=== PATIENT | male | born 1940 | race Caucasian/White ===

== ENCOUNTER 2023-03-03 20:37 | Outpatient (CLI) | payer MEDICARE, SELFPAY | END 2023-03-03 20:38 | disposition home or self-care (01) | PROVIDERS: Visit Provider Nurse Practitioner | DX: G47.33 Obstructive sleep apnea (adult) (pediatric) (principal) | CPT/HCPCS: 95811 ==

== ENCOUNTER 2023-05-24 06:28 | Day surgery (SDC) | payer MEDICARE, SELFPAY ==
[2023-05-24] VITALS (10 sets, daily range): BP systolic 102–126; BP diastolic 55–80; PULSE 60–65; RESP 16–18; TEMP 36.2–36.6; O2SAT 92–94; BMI 32.0
--- OUTSIDE RECORDS SUMMARY | 2023-05-24 06:33 | XMS_ITS | Clinical Summary ---
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 Electrochemiluminescence Immunoassay (ECLIA) The reference interval(s) and other method performance specifications have not been established for this body fluid. The test result must be integrated into the clinical context for interpretation. Values obtained with different assay methods or kits cannot be used interchangeably. ??Results cannot be interpreted as absolute evidence of the presence or absence of malignant disease. Cyst Fluid (Pancreas Head) Non-Blood / Unknown 05/16/2023 10:18 AM SHEET WRITER 05/16/2023 11:45 AM SHEET WRITER Narrative [facility] ([facility]) - 05/18/2023 3:10 PM SHEET WRITER Test(s) 764146-[id number], Fluid was developed and its performance characteristics determined by [facility]. It has not been cleared or approved by the Food and Drug Administration. Performed at: ??01 - [address] ??[id number] Automated Manufacturing Instructor: Wai Munoz MD, Phone: ??[phone] Jack Crenshaw MD BODY FLUID [facility] ([facility]) [address] [place] [address], * AMYLASE OTHER BODY FLUID (05/16/2023 10:18 AM SHEET WRITER) Amylase Body Fld 20 U/L 05/17/19 12:08 PM SHEET WRITER [facility] ([facility] Comment: ?: BODY FLUID TYPE : ?AMYLASE ?: ?: : : ?: Lymph ? : ?50 - 83 ?: ?: : : ?: Peritoneal ?: ? : ?: Fluid ? : ?88 - 109 ? : ?: : : ?: Saliva ?: ? : ?: (Mixed Glands) ??: ? [id number] - [id number] ?: ?: : : ? Julianna W, Hanny V. Reference Intervals ? for Adults and Children 2008. Ninth ? Edition (V9.1) [employer], ? [place]; [place]: October 2008. Cyst Fluid (Pancreas Head) Non-Blood / Unknown 05/16/2023 10:18 AM SHEET WRITER 05/16/2023 11:45 AM SHEET WRITER Narrative [facility] ([facility]) - 05/17/2023 12:08 PM SHEET WRITER Performed at: ??01 - [address] ??[id number] Automated Manufacturing Instructor: Cristian Mosley MD, Phone: ??[phone] Jack Crenshaw MD BODY FLUID [facility] ([facility]) [address] [place] [address], * PATH FNA CYTOLOGY ASP CYTOLOGY (05/16/2023 10:18 AM SHEET WRITER) Case Report Medical Cytology Report ? Case: [id number] ? Authorizing Provider: ??Jack Crenshaw, ?? Collected: ? 05/16/2023 1018 ? MD ? Ordering Location: ? [facility] ?Received: ?05/16/2023 1103 ? Hospital ? Pathologist: ? Josselyn Argueta, ? Specimens: ?? A) - Pancreas Head, R/o serous cyst adenoma ? B) - Pancreas Head, pancreas head cyst vs mass ? 4 5:06 PM [facility] Amendment 05/17/2023: Report modified to include results of Ki-67 proliferation index; see final diagnosis and updated comment. 4 5:06 PM [facility] Final Diagnosis A) PANCREAS, HEAD, EUS-GUIDED FINE NEEDLE ASPIRATION OF CYST FLUID: 1. Scattered bland epithelial cells with neuroendocrine morphology in a background of blood 2. Consistent with sampling of a cystic well differentiated neuroendocrine tumor (see part B below) B) PANCREAS, HEAD, CYSTIC MASS, EUS GUIDED FINE NEEDLE ASPIRATION: 1. Positive for neoplasm; well-differentiated neuroendocrine tumor 2. Ki-67 proliferation index of 4%, corresponding to a WHO grade 2 (of 3) well differentiated ?? neuroendocrine tumor 3. See comment 4 5:06 PM [facility] Amendment electronically signed by Josselyn Argueta DO on 05/17/2023 at 5:06 PM Comment B) The slides show a neuroendocrine neoplasm with well-differentiated cytologic features. ??There is no significant mitotic activity or necrosis. A Ki-67 proliferation reveals a proliferation index of 4%, consistent with a WHO grade 2 well-differentiated neuroendocrine tumor. Dr. Argueta notified Dr. Crenshaw on 05/17/2023. Part B of this case was seen in consultation with Dr. Salguero. Ki-67 (proliferation) index is assessed by immunohistochemistry using clone [id number] with quantitative microscopy (image analysis). A recut H&E and the IHC slides (block B2) are reviewed by Dr. Argueta. The results are as follows: Ki-67 index = 4% (4853 cells analyzed for Ki-67.) 4 5:06 PM [facility] Clinical Information Mr. Castelan is a 82 y.o. with a suspected mass in the pancreas seen on CT scan. Endoscopic ultrasound revealed a mass within the pancreatic head which was mixed solid and cystic measuring 60 x 40 mm in diameter with well-defined borders. Fine-needle aspiration was performed using a transgastric approach. 4 5:06 PM [facility] Gross Description A) SOURCE: Pancreas Head Cyst, fine needle aspiration The specimen consists of 2 cc of light red opaque fluid from which the following is prepared: ? -1 DiffQuik stained slide ? -1 Papanicolaou stained ThinPrep slide ?? B) Received identified as Pancreas Head, is a fine needle aspirate specimen. The specimen consists of: ? -2 Air dried slides ? -1 CytoLyt vial ? -0 RPMI vials ? -1 Formalin vial The following were prepared from the specimen submitted: ? -2 Diff-Quik stained slides ? -1 Papanicolaou stained ThinPrep slide ? -1 H&E stained cell block slide B2 Cell block material was removed from the patient and placed directly in formalin at 1055 on 05/16/23 and fixed in formalin at least 6 hours and no more than 72 hours. 4 5:06 PM SHEET WRITER [facility] Adequacy Assessment B) A.S. assessed adequacy from the air-dried smears at the time of the procedure with an impression of Not Adequate. 4 5:06 PM [facility] Microscopic Description Specimen adequacy: Adequate for interpretation. All slides were reviewed. The microscopic appearance substantiates the diagnosis. Immunohistochemical stains were performed on block B2, and the cells of the tumor cells are summarized below: Cytokeratin cocktail: Positive (diffuse) INSM1: Positive (diffuse) Synaptophysin: Positive (diffuse) Inhibin: Negative Ki-67 immunohistochemistry with image analysis was performed on block B2. Support for the interpretation of this case may have included the use of immunohistochemistry and/or in situ hybridization tests that were performed by [facility] and whose performance characteristics were evaluated by pathologists from [facility]. These tests have not been cleared or approved by the U.S. Food and Drug Administration. The FDA has determined that such clearance or approval is not necessary. These tests are used for clinical purposes and should not be regarded as investigational or for research. This laboratory is certified under the Clinical Laboratory Improvement Amendments of 1988 (CLIA) as qualified to perform high complexity clinical laboratory testing. 4 5:06 PM [facility] Additional Information Cytology is screened at [facility] - [address], [place] [address] and [facility] - [address] [place] [address] and [facility] - [address] [place] [address] Interpreted at [facility] - [address], [place] [address] 4 5:06 PM SHEET WRITER [facility] Cyst Fluid (Pancreas Head) 05/16/2023 10:18 AM SHEET WRITER 05/16/2023 11:03 AM SHEET WRITER Specimen obtained by aspiration (specimen) (Pancreas Head) 05/16/2023 10:44 AM SHEET WRITER 05/16/2023 11:03 AM SHEET WRITER Jack Crenshaw MD PATHOLOGY/CYTO LOGY [facility] [address] [place] [address], * ENDOSCOPY (05/16/2023 10:08 AM SHEET WRITER) 05/16/2023 10:0 8 AM SHEET WRITER Narrative Transcriptions Jack Crenshaw MD - 05/16/2023 11:25 AM CST [facility] Patient Name: Desi Castelan Procedure Date: 05/16/2023 Gender: Male Date of : 1940 Admit Type: Ambulatory Procedure: Upper EUS Proceduralist: Jack Crenshaw MD - [facility] Referring MD: Jack Crenshaw MD Indications/Pre-Op Diagnosis: Suspected mass in pancreas on CT scan Medications: Monitored Anesthesia Care Procedure Description: Risk of bleeding, infection, perforation, pancreatitis, need for surgery, remote chance of and alternatives were discussed, andthe patient gave informed consent. The endoscope [id number] was introduced through the mouth, and advanced to the third part of duodenum. The upper EUS wasaccomplished without difficulty. The patient tolerated the procedure well. Complications: No immediate complications. Estimated Blood Loss & Specimen: Estimated blood loss: none. Specimen collected: Yes and sent to Laboratory Findings: ENDOSCOPIC FINDING: : The examined esophagus was normal. The entire examined stomach was normal. The examined duodenum was normal. ENDOSONOGRAPHIC FINDING: : There was no sign of significant endosonographic abnormality in the ampulla. No masses were identified. There was no sign of significant endosonographic abnormality in the common bile duct. The maximum diameter of the duct was 4 mm. Nostones, no biliary sludge, ducts of normal caliber and ducts with regular contour were identified. There was no sign of significant endosonographic abnormality in theleft lobe of the liver and in the right lobe of the liver. No focalpathology was identified. A mass was identified in the pancreatic head. The mass was mixedsolid and cystic. The mass measured 60 mm by 40 mm in maximalcross-sectional diameter. The endosonographic borders were well-defined. An intact interface was seen between the mass and the adjacent structures suggesting a lack of invasion. Fine needle biopsy was performed.Color Doppler imaging was utilized prior to needle puncture to confirm alack of significant vascular structures within the needle path. Two passes were made with the 22 gauge ultrasound biopsy needle using a transgastric approach. Final cytology results are pending. Diagnostic needle aspiration for fluid was performed. Color Doppler imaging was utilized prior to needle puncture to confirm a lack of significant vascular structures within the needle path. One pass was made withthe 22 gauge needle using a transgastric approach. The amount of fluid collected was 4 mL. The fluid was serosanguinous. Sample(s) were sent for amylase concentration, cytology and CEA. Pancreatic parenchymal abnormalities were noted in the pancreaticbody and pancreatic tail. These consisted of atrophy. The pancreatic duct had a normal endosonographic appearance in the pancreatic head, body of the pancreas and tail of the pancreas. The pancreatic duct measured up to 2 mm in diameter in the head and 1 mmin the body and tail. The aortopulmonary region (level 5), subcarinal mediastinum (level 7) and celiac region (level 20) nodes were endosonographically normal.No pathologic lymphadenopathy was identified. Impressions/Post-Op Diagnosis: - A mass was identified in the pancreatic head. Tissue was obtainedfrom this exam, and results are pending. However, the endosonographic appearance is consistent with a serous cystadenoma. Fine needlebiopsy performed. Fine needle aspiration for fluid performed. Recommendation: - Return to endoscopist at appointment to be scheduled. Jack Crenshaw MD 05/16/2023 11:25:20 AM This report has been signed electronically. Note Initiated On: 05/16/2023 10:08 AM Jack Crenshaw MD PROCEDURE ORD * SCAN-CARDIAC STRIP (05/02/2023 9:31 AM SHEET WRITER) Scanner OTHER * (ABNORMAL) GLUCOSE METER (05/02/2023 8:09 AM SHEET WRITER) Only the most recent of19 resultswithin the time period is included. GLUCOSE METER 166(H) 65 - 100 mg/dL 05/02/2023 8:13 AM SHEET WRITER [facility] Blood BLOOD SPECIMEN / Unknown 05/02/2023 8:09 AM SHEET WRITER 05/02/2023 8:13 AM SHEET WRITER Rhonda Jordan NP CHEMISTRY Performing Organization Address City/State/[facility] Co de Phone Number [facility] [address] [place] [address] * SCAN-CARDIAC STRIP (05/01/2023 7:48 AM SHEET WRITER) Scanner OTHER * ECHO TTE COMPLETE W CONTRAST (04/30/2023 3:43 PM SHEET WRITER) AORTIC VALVE MEAN PG 2 mmHg LVEDD 5.1 cm EJECTION FRACTION 60 - 65% Anatomical Region Laterality Modality Ultrasound, Othe r 04/30/2023 11:3 6 AM SHEET WRITER Narrative 04/30/2023 4:33 PM SHEET WRITER ECHOCARDIOGRAM DESI CASTELAN ?Accession#: ?? [id number] : ?1940 82 years Study Date: ?? 04/30/2023 11:36:34 AM Gender: M ? BP: ? 157/74 mmHg Height: 178.00 cm ? BSA: ?2.15 m? ? ? Weight: 97.00 kg ?Tech: ? MBW ?Referring MD: ORIN SOSA Site: ? [facility] ([place]) Reading Location: [facility] Patient Location: Inpatient. Procedure: 2D w/ Contrast, Color Doppler and Spectral Doppler. Indication for study: Weakness (part of neuro workup) (Covid positive) Cardiac Rhythm: Regular.Study quality: Technically limited. Imaging limitations: This study was subject to imaging limitations due to a prominent lung artifact and very difficult images from all cardiac windows. Final Impressions: 1. Technically limited exam. 2. Normal LV size, not well visualized wall thickness, normal global systolic function with an estimated EF of 60 - 65%. 3. Right ventricular cavity size is not well visualized, global systolic RV function is not well visualized. Probably normal RV size and systolic function. 4. Cardiac valves not well seen. 5. The aortic sinus is dilated with a maximal diameter of 4.4 cm. 6. Echo contrast was administered to enhance visualization of all left ventricular segments. Chamber Sizes and Function Normal left ventricular size, not well visualized wall thickness, normal global systolic function with an estimated EF of 60 - 65%. Left atrial size is not well visualized. Right ventricular cavity size is not well visualized, global systolic RV function is not well visualized. The right atrium is not well visualized. The pulmonary artery is not well visualized. The sinus of Valsalva is dilated. The ascending aorta is not well visualized. Valves, RV Pressures and Diastolic Function The aortic valve is not well visualized , no stenosis and no regurgitation. The mitral valve is not well visualized, no mitral regurgitation. Spectral Doppler shows Grade 1 pattern of LV diastolic filling. The tricuspid valve is not well visualized. Tricuspid regurgitation is regurgitation is not evident. The pulmonic valve is not well visualized. Unable to determine pulmonary regurgitation. Masses, Effusion, Shunts There is no pericardial effusion. The inferior vena cava is dilated, respiratory size variation less than 50%. No left to right shunting was detected by limited color flow Doppler interrogation of the interatrial septum. MEASUREMENTS AND CALCULATIONS 2-D Measurements and LV Function: LVID (d) 5.1 cm LV FS% (2D) ?? 33 % LVID (s) 3.4 cm LVOT diameter 2.6 cm LVPW (d) 1.1 cm HR ?62 bpm Ao Sinus 4.4 cm LA Vol index ??30 ml/m2 LA ? 3.8 cm RV Max 4C (d) 3.9 cm Diastology: Mitral ?Tissue Doppler E Peak 0.5 m/s ??e', Septum ? 0.07 m/s A Peak 0.7 m/s ??e', Lateral ?0.08 m/s E/A ?0.8 ?E/e' Average ?? 6.77 DT ? 234 msec Aortic Valve: Vmax ? 1.0 m/s ??MIRANDA (V) ?? 2.94 cm? ? ? VTI ?0.22 m ?? MIRANDA (I) ?? 2.98 cm? ? ? LVOT V max ? 0.6 m/s ??Max PG ?4 mmHg LVOT VTI ? 0.12 m ?? Mean PG ?? 2 mmHg SV ? 64 ml ?Dim Index 0.57 SV index ? 30 ml/m? ? ? CO ?4.0 l/min AV Ejection Time 0.33 sec CI ?1.9 l/min/m? ? ? AV Flow Rate ? 195 ml/s Mitral Valve: MVA ? 3.2 cm? ? ? MV P 1/2 ??68 msec MV Mean G 1 mmHg MV VTI ?0.22 m Tricuspid Valve and estimated PA pressures: TAPSE 2.8 cm Contrast documentation: 4 ml diluted Definity, lot #[id number], [facility]# [id number] was administered peripherally to enhance visualization of all left ventricular segments. . This study was interpreted by an [facility] accredited facility. CC: Joy Hurd. ??Final ?? Procedure Note Desi Sesay MD - 04/30/2023 ECHOCARDIOGRAM DESI CASTELAN : 1940 82 years Study Date: 04/30/2023 11:36:34 AM Gender: M BP: 157/74 mmHg Height: 178.00 cm BSA: 2.15 m? ? ? Weight: 97.00 kg Tech: SADIA Referring MD: ORIN SOSA Site: [facility]) Reading Location: [facility] Patient Location: Inpatient. Procedure: 2D w/ Contrast, Color Doppler and Spectral Doppler. Indication for study: Weakness (part of neuro workup) (Covid positive) Cardiac Rhythm: Regular.Study quality: Technically limited. Imaging limitations: This study was subject to imaging limitations due toa prominent lung artifact and very difficult images from all cardiacwindows. Final Impressions: 1. Technically limited exam. 2. Normal LV size, not well visualized wall thickness, normal globalsystolic function with an estimated EF of 60 - 65%. 3. Right ventricular cavity size is not well visualized, global systolicRV function is not well visualized. Probably normal RV size and systolicfunction. 4. Cardiac valves not well seen. 5. The aortic sinus is dilated with a maximal diameter of 4.4 cm. 6. Echo contrast was administered to enhance visualization of all leftventricular segments. Chamber Sizes and Function Normal left ventricular size, not well visualized wall thickness, normalglobal systolic function with an estimated EF of 60 - 65%. Left atrialsize is not well visualized. Right ventricular cavity size is not wellvisualized, global systolic RV function is not well visualized. The rightatrium is not well visualized. The pulmonary artery is not wellvisualized. The sinus of Valsalva is dilated. The ascending aorta is notwell visualized. Valves, RV Pressures and Diastolic Function The aortic valve is not well visualized , no stenosis and noregurgitation. The mitral valve is not well visualized, no mitralregurgitation. Spectral Doppler shows Grade 1 pattern of LV diastolicfilling. The tricuspid valve is not well visualized. Tricuspidregurgitation is regurgitation is not evident. The pulmonic valve is notwell visualized. Unable to determine pulmonary regurgitation. Masses, Effusion, Shunts There is no pericardial effusion. The inferior vena cava is dilated,respiratory size variation less than 50%. No left to right shunting wasdetected by limited color flow Doppler interrogation of the interatrialseptum. MEASUREMENTS AND CALCULATIONS 2-D Measurements and LV Function: LVID (d) 5.1 cm LV FS% (2D) 33 % LVID (s) 3.4 cm LVOT diameter 2.6 cm LVPW (d) 1.1 cm HR 62 bpm Ao Sinus 4.4 cm LA Vol index 30 ml/m2 LA 3.8 cm RV Max 4C (d) 3.9 cm Diastology: Mitral Tissue Doppler E Peak 0.5 m/s e', Septum 0.07 m/s A Peak 0.7 m/s e', Lateral 0.08 m/s E/A 0.8 E/e' Average 6.77 DT 234 msec Aortic Valve: Vmax 1.0 m/s MIRANDA (V) 2.94 cm? ? ? VTI 0.22 m MIRANDA (I) 2.98 cm? ? ? LVOT V max 0.6 m/s Max PG 4 mmHg LVOT VTI 0.12 m Mean PG 2 mmHg SV 64 ml Dim Index 0.57 SV index 30 ml/m? ? ? CO 4.0 l/min AV Ejection Time 0.33 sec CI 1.9 l/min/m? ? ? AV Flow Rate 195 ml/s Mitral Valve: MVA 3.2 cm? ? ? MV P 1/2 68 msec MV Mean G 1 mmHg MV VTI 0.22 m Tricuspid Valve and estimated PA pressures: TAPSE 2.8 cm Contrast documentation: 4 ml diluted Definity, lot #[id number], [facility]#[id number] was administered peripherally to enhance visualization of allleft ventricular segments. . This study was interpreted by an [facility] accredited facility. CC: Joy Hurd. Final Orin Sosa DO ECHO ORD * US RENAL AND BLADDER COMPLETE (04/30/2023 11:20 AM SHEET WRITER) Anatomical Region Laterality Modality Abdomen, AORTA, KIDNEYS Ultrasou nd 04/30/2023 11:4 8 AM SHEET WRITER Impressions 04/30/2023 11:48 AM SHEET WRITER Right renal cyst. Otherwise negative. No hydronephrosis. Radford catheter present an empty bladder. Dictated by Yves Snow MD @ 04/30/2023 11:48:30 AM (Electronically Signed) Narrative 04/30/2023 11:48 AM SHEET WRITER For Patients: ??As a result of the Cures Act, medical imaging exams and procedure reports are released immediately into your electronic medical record. ??You may view this report before your referring provider. ??If you have questions, please contact your health care provider. INDICATION: BPH without obstruction TECHNIQUE: Ultrasound renal bilateral. Gonzales-scale and color Doppler sonographic images were acquired of the kidneys and urinary bladder. COMPARISON: None FINDINGS: Right kidney: 13.7 x 5.5 x 6.1 cm. Multiple renal cysts the largest measuring 2.8 cm. Otherwise normal echotexture and cortex. No masses, stones, or hydronephrosis. Left kidney: 11.5 x 7.2 x 7.7 cm. Normal echotexture and cortex. No masses, stones, or hydronephrosis. Bladder: Radford catheter present an empty bladder. Procedure Note Uzair Snow MD - 04/30/2023 For Patients: As a result of the Cures Act, medical imagingexams and procedure reports are released immediately into your electronicmedical record. You may view this report before your referring provider.If you have questions, please contact your health care provider. INDICATION: BPH without obstruction TECHNIQUE: Ultrasound renal bilateral. Gonzales-scale and color Doppler sonographicimages were acquired of the kidneys and urinary bladder. COMPARISON: None FINDINGS: Right kidney: 13.7 x 5.5 x 6.1 cm. Multiple renal cysts the largestmeasuring 2.8 cm. Otherwise normal echotexture and cortex. No masses,stones, or hydronephrosis. Left kidney: 11.5 x 7.2 x 7.7 cm. Normal echotexture and cortex. Nomasses, stones, or hydronephrosis. Bladder: Radford catheter present an empty bladder. IMPRESSION: Right renal cyst. Otherwise negative. No hydronephrosis. Radford catheterpresent an empty bladder. Dictated by Yves Snow MD @ 04/30/2023 11:48:30 AM (Electronically Signed) Blaine Palomares MD US * MR HEAD BRAIN WO (04/30/2023 9:29 AM SHEET WRITER) Anatomical Region Laterality Modality BRAIN, HEAD Magnetic Resonan ce 04/30/2023 9:39 AM SHEET WRITER Addenda Addendum by Shauna Garces DO on 04/30/2023 10:12 AM SHEET WRITER Indication: Transient ischemic attack Technique: Multiplanar, multisequence MRI of the brain obtained without contrast. Comparison: CT head 04/27/2023 Findings: Two small foci on the restricted diffusion are present along the left precentral gyrus and left posterior occipital lobe, compatible with subacute infarcts. No evidence of hemorrhagic conversion, midline shift or herniation. Small chronic infarct is noted at the right frontal lobe. Tiny chronic lacunar infarcts are noted at the left mendes radiata, right caudate head, and left cerebellar hemisphere. There is mild generalized cerebral volume loss with mild chronic microangiopathy white-matter signal changes. No suspicious susceptibility. Midline structures are unremarkable. Major expected intracranial flow voids are visualized. Bone marrow signal is unremarkable. No suspicious findings in the regional soft tissues. Diffuse paranasal sinus mucosal thickening greatest at the ethmoid air cells, with trace layering secretions in both maxillary sinuses. No mastoid effusion. Bilateral lens implants. Impression: 1. Two small foci of subacute ischemia involving the left precentral gyrus and left posterior occipital lobe. No hemorrhagic conversion. 2. Mild generalized cerebral volume loss, mild chronic microangiopathy changes, and multiple chronic infarcts as detailed. 3. Diffuse paranasal sinus mucosal thickening with trace layering secretions in both maxillary sinuses. Dictated by Shauna Garces MD @ 04/30/2023 9:39:21 AM ----- ADDENDUM ----- Exam report was faxed, with confirmation of receipt by Dr. Orin Sosa at 9:55 a.m. on 04/30/2023. Dictated by Shauna Garces MD @ Apr 30 2023 10:12AM (Electronically Signed) Narrative 04/30/2023 9:39 AM SHEET WRITER For Patients: ??As a result of the Cures Act, medical imaging exams and procedure reports are released immediately into your electronic medical record. ??You may view this report before your referring provider. ??If you have questions, please contact your health care provider. Indication: Transient ischemic attack Technique: Multiplanar, multisequence MRI of the brain obtained without contrast. Comparison: CT head 04/27/2023 Findings: Two small foci on the restricted diffusion are present along the left precentral gyrus and left posterior occipital lobe, compatible with subacute infarcts. No evidence of hemorrhagic conversion, midline shift or herniation. Small chronic infarct is noted at the right frontal lobe. Tiny chronic lacunar infarcts are noted at the left mendes radiata, right caudate head, and left cerebellar hemisphere. There is mild generalized cerebral volume loss with mild chronic microangiopathy white-matter signal changes. No suspicious susceptibility. Midline structures are unremarkable. Major expected intracranial flow voids are visualized. Bone marrow signal is unremarkable. No suspicious findings in the regional soft tissues. Diffuse paranasal sinus mucosal thickening greatest at the ethmoid air cells, with trace layering secretions in both maxillary sinuses. No mastoid effusion. Bilateral lens implants. Impression: 1. Two small foci of subacute ischemia involving the left precentral gyrus and left posterior occipital lobe. No hemorrhagic conversion. 2. Mild generalized cerebral volume loss, mild chronic microangiopathy changes, and multiple chronic infarcts as detailed. 3. Diffuse paranasal sinus mucosal thickening with trace layering secretions in both maxillary sinuses. Dictated by Shauna Garces MD @ 04/30/2023 9:39:21 AM (Electronically Signed) Procedure Note Shauna Garces, - 04/30/2023 For Patients: As a result of the Cures Act, medical imagingexams and procedure reports are released immediately into your electronicmedical record. You may view this report before your referring provider.If you have questions, please contact your health care provider. Indication: Transient ischemic attack Technique: Multiplanar, multisequence MRI of the brain obtained without contrast. Comparison: CT head 04/27/2023 Findings: Two small foci on the restricted diffusion are present along the leftprecentral gyrus and left posterior occipital lobe, compatible withsubacute infarcts. No evidence of hemorrhagic conversion, midline shift orherniation. Small chronic infarct is noted at the right frontal lobe. Tinychronic lacunar infarcts are noted at the left mendes radiata, rightcaudate head, and left cerebellar hemisphere. There is mild generalizedcerebral volume loss with mild chronic microangiopathy white-matter signalchanges. No suspicious susceptibility. Midline structures are unremarkable. Major expected intracranial flowvoids are visualized. Bone marrow signal is unremarkable. No suspiciousfindings in the regional soft tissues. Diffuse paranasal sinus mucosalthickening greatest at the ethmoid air cells, with trace layeringsecretions in both maxillary sinuses. No mastoid effusion. Bilateral lensimplants. Impression: 1. Two small foci of subacute ischemia involving the left precentral gyrusand left posterior occipital lobe. No hemorrhagic conversion. 2. Mild generalized cerebral volume loss, mild chronic microangiopathychanges, and multiple chronic infarcts as detailed. 3. Diffuse paranasal sinus mucosal thickening with trace layeringsecretions in both maxillary sinuses. Dictated by Shauna Garces MD @ 04/30/2023 9:39:21 AM (Electronically Signed) Orin Adama Sosa MR * HEMOGLOBIN (04/30/2023 6:45 AM SHEET WRITER) Only the most recent of2 resultswithin the time period is included. HEMOGLOBIN 13.8 13.5 - 17.5 g/dL 04/30/2023 7:19 AM SHEET WRITER [facility] MCV 98 80 - 100 fL 04/30/2023 7:19 AM SHEET WRITER [facility] Blood BLOOD SPECIMEN / Unknown Butterfly / Unknown 04/30/2023 6:45 AM SHEET WRITER 04/30/2023 7:15 AM SHEET WRITER Rhonda Jordan NP HEMATOLOGY [facility] [address] [place] [address] * SODIUM (04/30/2023 6:45 AM SHEET WRITER) Only the most recent of3 resultswithin the time period is included. SODIUM 139 136 - 145 mmol/L 04/30/2023 7:[address] [facility] Blood BLOOD SPECIMEN / Unknown Butterfly / Unknown 04/30/2023 6:45 AM SHEET WRITER 04/30/2023 7:15 AM SHEET WRITER Rhonda Jordan NP CHEMISTRY Performing Organization Address [facility] Co de Phone Number [facility] [address] [place] [address] * POTASSIUM (04/30/2023 6:45 AM SHEET WRITER) Only the most recent of3 resultswithin the time period is included. POTASSIUM 3.8 3.5 - 5.1 mmol/L 04/30/2023 7:[address] [facility] Blood BLOOD SPECIMEN / Unknown Butterfly / Unknown 04/30/2023 6:45 AM SHEET WRITER 04/30/2023 7:15 AM SHEET WRITER Rhonda Jordan NP CHEMISTRY Performing Organization Address [facility] de Phone Number [facility] [address] [place] [address] * (ABNORMAL) CREATININE (04/30/2023 6:45 AM SHEET WRITER) Only the most recent of3 resultswithin the time period is included. eGFR >90 >90 mL/min/1.7 3m2 04/30/2023 7:[address] [facility] Comment:As of 2021, eG FR is calculated by the CKD-EPI creatinine equation without race adjustment. ??eGFR can be influenced by muscle mass, exercise, and diet. ??The reported eGFR is an estimation only and is only applicable if the renal function is stable. CREATININE 0.58(L) 0.70 - 1.20 mg/dL 04/30/2023 7:[address] [facility] Blood BLOOD SPECIMEN / Unknown Butterfly / Unknown 04/30/2023 6:45 AM SHEET WRITER 04/30/2023 7:15 AM SHEET WRITER Rhonda Jordan NP CHEMISTRY Performing Organization Address [facility]/ZIP Co de Phone Number [facility] [address] [place] [address] * MAGNESIUM (04/30/2023 6:45 AM SHEET WRITER) Only the most recent of3 resultswithin the time period is included. MAGNESIUM 2.0 1.6 - 2.4 mg/dL 04/30/2023 8:08 AM SHEET WRITER [facility] Blood BLOOD SPECIMEN / Unknown Butterfly / Unknown 04/30/2023 6:45 AM SHEET WRITER 04/30/2023 7:15 AM SHEET WRITER Rhonda Jordan NP CHEMISTRY Performing Organization Address [facility] Co de Phone Number [facility] [address] [place] [address] * SCAN-CARDIAC STRIP (04/29/2023 9:04 AM SHEET WRITER) Scanner OTHER * (ABNORMAL) RED CELL MORPHOLOGY (04/29/2023 6:37 AM SHEET WRITER) Only the most recent of3 resultswithin the time period is included. ELLIPTOCYTES Few 04/29/2023 8:[address] [facility] TARGET CELLS Few 04/29/2023 8:[address] [facility] RBC COMMENT Present(A) RBC morphology appears normal, RBC morphology within normal limits for newborns. 04/29/2023 8:[address] [facility] LARGE PLATELETS Present 8:[address] [facility] Blood BLOOD SPECIMEN / Unknown Venipuncture / Unknown 04/29/2023 6:37 AM SHEET WRITER 04/29/2023 7:15 AM SHEET WRITER Rhonda Jordan NP HEMATOLOGY Performing Organization Address [facility] Co de Phone Number [facility] [address] [place] [address] * PLATELET ESTIMATE (04/29/2023 6:37 AM SHEET WRITER) Only the most recent of2 resultswithin the time period is included. PLATELET ESTIMATE Adequate Adequate, No estimate 04/29/2023 8:05 AM SHEET WRITER [facility] Blood BLOOD SPECIMEN / Unknown Venipuncture / Unknown 04/29/2023 6:37 AM SHEET WRITER 04/29/2023 7:15 AM SHEET WRITER Rhonda Jordan NP HEMATOLOGY Performing Organization Address [facility] de Phone Number [facility] [address] [place] [address] * (ABNORMAL) WHITE BLOOD COUNT (04/29/2023 6:37 AM SHEET WRITER) Only the most recent of2 resultswithin the time period is included. WHITE BLOOD COUNT 4.4(L) 4.5 - 11.0 thou/cu mm 04/29/2023 8:04 AM SHEET WRITER [facility] Blood BLOOD SPECIMEN / Unknown Venipuncture / Unknown 04/29/2023 6:37 AM SHEET WRITER 04/29/2023 7:15 AM SHEET WRITER Rhonda Jordan NP HEMATOLOGY Performing Organization Address [facility] Co de Phone Number [facility] [address] [place] [address] * SCAN-CARDIAC STRIP (04/28/2023 10:31 AM SHEET WRITER) Scanner OTHER * CT ANGIO HEAD AND NECK CAROTID (04/28/2023 8:45 AM SHEET WRITER) Anatomical Region Laterality Modality BRAIN, NECK Computed Tomogra phy 04/28/2023 9:15 AM SHEET WRITER Addenda Addendum by Zachary Cox MD on 04/28/2023 9:18 AM SHEET WRITER For Patients: ??As a result of the Cures Act, medical imaging exams and procedure reports are released immediately into your electronic medical record. ??You may view this report before your referring provider. ?? If you have questions, please contact your health care provider. CLINICAL HISTORY: Acute neurological deficit. TECHNIQUE: CTA head with contrast bolus tracking. 3D angiographic rendering using maximum intensity projection (MIP) and images permanently archived. COMPARISON: None available. FINDINGS: The petrous, cavernous, and supraclinoid segments of the internal carotid arteries are patent. The anterior and middle cerebral arteries are patent. The anterior communicating artery is visualized and is within normal limits. The intracranial vertebral arteries, basilar trunk, and posterior cerebral arteries are patent. No intracranial proximal large vessel occlusion or flow-limiting luminal stenosis. No evidence of cerebral aneurysm. No findings to suggest an arterial-venous shunting lesion. The major dural venous sinuses and deep venous system are patent. IMPRESSION: No intracranial proximal large vessel occlusion, flow-limiting luminal stenosis, or cerebral aneurysm. Please note that all CT scans at this facility use dose modulation, iterative reconstruction, and/or weight-based dosing when appropriate to reduce radiation dose to as low as reasonably achievable. Dictated by Zachary Cox MD @ 04/28/2023 9:18:08 AM (Electronically Signed) Impressions 04/28/2023 9:15 AM SHEET WRITER Patent cervical arterial vasculature without hemodynamically significant luminal stenosis. Please note that all CT scans at this facility use dose modulation, iterative reconstruction, and/or weight-based dosing when appropriate to reduce radiation dose to as low as reasonably achievable. Dictated by Zachary Cox MD @ 04/28/2023 9:15:09 AM (Electronically Signed) Narrative 04/28/2023 9:15 AM SHEET WRITER For Patients: ??As a result of the Cures Act, medical imaging exams and procedure reports are released immediately into your electronic medical record. ??You may view this report before your referring provider. ??If you have questions, please contact your health care provider. CLINICAL HISTORY: Acute neurological deficit. TECHNIQUE: CTA neck with contrast bolus tracking. 3D angiographic rendering using maximum intensity projection (MIP) and images permanently archived. COMPARISON: None available. FINDINGS: The great vessels are patent. The common carotid arteries are patent. The proximal ICAs are patent without signficant stenoses by NASCET criteria. The more distal cervical ICAs are patent. The origins of the vertebral arteries are patent. The cervical segments of the vertebral arteries are patent. Heterogeneous and enlarged thyroid gland. Procedure Note Zachary Cox MD - 04/28/2023 For Patients: As a result of the Cures Act, medical imagingexams and procedure reports are released immediately into your electronicmedical record. You may view this report before your referring provider.If you have questions, please contact your health care provider. CLINICAL HISTORY: Acute neurological deficit. TECHNIQUE: CTA neck with contrast bolus tracking. 3D angiographic rendering usingmaximum intensity projection (MIP) and images permanently archived. COMPARISON: None available. FINDINGS: The great vessels are patent. The common carotid arteries are patent. Theproximal ICAs are patent without signficant stenoses by NASCET criteria.The more distal cervical ICAs are patent. The origins of the vertebralarteries are patent. The cervical segments of the vertebral arteries arepatent. Heterogeneous and enlarged thyroid gland. IMPRESSION: Patent cervical arterial vasculature without hemodynamically significantluminal stenosis. Please note that all CT scans at this facility use dose modulation,iterative reconstruction, and/or weight-based dosing when appropriate toreduce radiation dose to as low as reasonably achievable. Dictated by Zachary Cox MD @ 04/28/2023 9:15:09 AM (Electronically Signed) Orin Sosa DO CT * (ABNORMAL) HEMOGLOBIN A1C SCREENING (04/28/2023 6:01 AM SHEET WRITER) HEMOGLOBIN A1C SCREENING 7.4(H) <=6.4 % 04/29/2023 8:03 AM SHEET WRITER [facility] Blood BLOOD SPECIMEN / Unknown Venipuncture / Unknown 04/28/2023 6:01 AM SHEET WRITER 04/28/2023 6:27 AM SHEET WRITER Narrative [facility] - 04/29/2023 8:03 AM SHEET WRITER ? (<5.7%) ?Normal ? (5.7% to 6.4%) ? Indicates prediabetes ? (>=6.5%) ? Confirms diabetes Falsely low levels may be seen with: Recent Transfusion, Recent Significant Blood Loss, Hemolytic Diseases, or Falsely elevated levels may be seen with: Untreated Anemias, Splenectomy Orin Sosa DO CHEMISTRY Performing Organization Address City/[facility] Co de Phone Number [facility] [address] [place] [address], * (ABNORMAL) PLATELET COUNT (04/28/2023 6:01 AM SHEET WRITER) PLATELET COUNT 118(L) 140 - 440 thou/cu mm 04/28/2023 8:16 AM SHEET WRITER [facility] MPV 12.2(H) 6.5 - 11.0 fL 04/28/2023 8:16 AM SHEET WRITER [facility] Blood BLOOD SPECIMEN / Unknown Venipuncture / Unknown 04/28/2023 6:01 AM SHEET WRITER 04/28/2023 6:27 AM SHEET WRITER Orin Sosa DO HEMATOLOGY Performing Organization Address [facility] de Phone Number [facility] [address] [place] [address] * ALT (SGPT) (04/28/2023 6:01 AM SHEET WRITER) ALT (SGPT) 19 10 - 50 IU/L 04/28/2023 7:25 AM SHEET WRITER [facility] Blood BLOOD SPECIMEN / Unknown Venipuncture / Unknown 04/28/2023 6:01 AM SHEET WRITER 04/28/2023 6:27 AM SHEET WRITER Orin Rafatpriscillacollins Macey DO CHEMISTRY Performing Organization Address [facility] Co de Phone Number [facility] [address] [place] [address] * AST (SGOT) (04/28/2023 6:01 AM SHEET WRITER) AST (SGOT) 26 10 - 50 IU/L 04/28/2023 7:[address] [facility] Blood BLOOD SPECIMEN / Unknown Venipuncture / Unknown 04/28/2023 6:01 AM SHEET WRITER 04/28/2023 6:27 AM SHEET WRITER Orin Douglassrober Calderaosmar AWAD CHEMISTRY [facility] [address] [place] [address] * (ABNORMAL) LIPID PANEL (04/28/2023 6:01 AM SHEET WRITER) CHOLESTEROL,TOTAL 88(L) 100 - 199 mg/dL 04/28/2023 8:[address] [facility] Comment: Cholesterol, Total Reference Ranges Desirable <200 mg/dL Borderline 200-239 mg/dL High >=240 mg/dL TRIGLYCERIDES 66 <150 mg/dL 04/28/2023 8:[address] [facility] HDL CHOLESTEROL 50 >40 mg/dL 8:[address] [facility] NON-HDL CHOLESTEROL 38 <145 mg/dl 04/28/2023 8:[address] [facility] CHOL/HDL RATIO 1.76 <4.50 04/28/2023 8:[address] [facility] LDL CHOLESTEROL 25 <=130 mg/dL 04/28/2023 8:[address] [facility] VLDL CHOLESTEROL 13 <=30 mg/dL 04/28/19 8:[address] [facility] Blood BLOOD SPECIMEN / Unknown Venipuncture / Unknown 04/28/2023 6:01 AM SHEET WRITER 04/28/2023 6:27 AM SHEET WRITER Orin Sosa DO CHEMISTRY Performing Organization Address City/[facility]/ZIP Co de Phone Number [facility] [address] [place] [address] * SCAN-CARDIAC STRIP (04/28/2023 1:45 AM SHEET WRITER) Scanner OTHER * (ABNORMAL) TROPONIN T (HS) ONE TIME (04/27/2023 3:22 PM SHEET WRITER) Only the most recent of2 resultswithin the time period is included. TROPONIN T HS 17(H) 6-15 ng/L ng/L 04/27/2023 3:44 PM SHEET WRITER [facility] Blood BLOOD SPECIMEN / Unknown Venipuncture / Unknown 04/27/2023 3:22 PM SHEET WRITER 04/27/2023 3:26 PM SHEET WRITER [facility] - 04/27/2023 3:44 PM SHEET WRITER hs-cTnT (Elecsys Troponin T Gen 5) concentration (s) above the sex-specific 99th percentile (16 ng/L or greater for males or 11 ng/L or greater for females) are indicative of myocardial injury. If initial hs-cTnT <=100 ng/L at presentation, a 0h/2h ABSOLUTE (ng/L) delta change (rising or falling) of >=10 ng/L suggests a significant change, whereas a 0h/2h delta change <=3 ng/L suggests no significant change. If initial hs-cTnT >100 ng/L at presentation, a 0h/2h/ RELATIVE (percent, %) delta change of 20% is suggested to distinguish patients with acute vs. chronic myocardial injury. There are multiple etiologies that can cause hs-cTnT increases above the 99th percentile (myocardial injury) other than acute myocardial infarction. Clinical context and careful clinical evaluation are critical for diagnosis and risk-stratification. The diagnosis of acute myocardial infarction requires a rising and/or falling pattern in hs-cTnT concentrations with at least one value above the sex-specific 99th percentile PLUS at least one of the following clinical criteria: ischemic symptoms, new or presumed new significant ST-T wave changes or new LBBB, development of pathological Q waves, imaging evidence of new loss of viable myocardium or new regional wall motion abnormality, or identification of intracoronary atherothrombosis or an acute angiographic culprit on coronary angiography. In appropriate low-risk patients with a non-ischemic electrocardiogram without active chest pain with a symptom onset >3-hours without recurrence, a single initial hs-cTnT<6 ng/L identifies patient with a very low risk in emergency department patient population. Orin Sosa CHEMISTRY [facility] [address] [facility] [place], [place] [id number] * XR CHEST 1 VIEW PORTABLE (04/27/2023 1:33 PM SHEET WRITER) Anatomical Region Laterality Modality HEART, THORAX, CHEST Digital Rad iography 04/27/2023 1:52 PM SHEET WRITER Narrative 04/27/2023 1:52 PM SHEET WRITER For Patients: ??As a result of the Cures Act, medical imaging exams and procedure reports are released immediately into your electronic medical record. ??You may view this report before your referring provider. ??If you have questions, please contact your health care provider. Indication: Eval lung infiltrate. Technique: Chest 1 view. Comparison: 03/29/2010. Findings/Impression: Cardiovascular and mediastinum: Heart size and vasculature are normal in caliber and appearance. Lungs and pleural space: Lungs are clear except for a stable benign right lower lobe granuloma. No sign of infiltrate or mass. ??No sign of pleural effusion. ??No pneumothorax. No sign of pneumonia. Bones and soft tissues: No acute findings. Dictated by Noble Carrasquillo MD @ 04/27/2023 1:52:43 PM (Electronically Signed) Procedure Note Noble Carrasquillo MD - 04/27/2023 For Patients: As a result of the Cures Act, medical imagingexams and procedure reports are released immediately into your electronicmedical record. You may view this report before your referring provider.If you have questions, please contact your health care provider. Indication: Eval lung infiltrate. Technique: Chest 1 view. Comparison: 03/29/2010. Findings/Impression: Cardiovascular and mediastinum: Heart size and vasculature are normal incaliber and appearance. Lungs and pleural space: Lungs are clear except for a stable benign rightlower lobe granuloma. No sign of infiltrate or mass. No sign of pleuraleffusion. No pneumothorax. No sign of pneumonia. Bones and soft tissues: No acute findings. Dictated by Noble Carrasquillo MD @ 04/27/2023 1:52:43 PM (Electronically Signed) Jaime Mead MD GENERAL IMAGING * (ABNORMAL) URINALYSIS MICROSCOPIC (04/27/2023 12:14 PM SHEET WRITER) Only the most recent of4 resultswithin the time period is included. RBC >100(A) 0-2, None Seen /HPF 04/27/2023 12:28 PM SHEET WRITER [facility] WBC 11-25(A) 0-2, 3-5, None Seen /HPF 04/27/2023 12:28 PM SHEET WRITER [facility] BACTERIA Many(A) None Seen, Rare, Few Bacteria/H PF 04/27/2023 12:28 PM SHEET WRITER [facility] EPITHELIAL CELLS Few None Seen, Few Epi/HPF 04/27/2023 12:28 PM SHEET WRITER [facility] Urine URINE SPECIMEN / Unknown Non-Blood / Unknown 04/27/2023 12:14 PM SHEET WRITER 04/27/2023 12:16 PM SHEET WRITER Jaime Mead MD URINE Performing Organization Address City/[facility]/ZIP Co de Phone Number [facility] [address] [place] [address] * URINE CULTURE (04/27/2023 12:14 PM SHEET WRITER) Only the most recent of2 resultswithin the time period is included. CULTURE No growth (<1,000 CFU/mL) 04/28/2023 8:03 AM SHEET WRITER [facility] Urine URINE SPECIMEN / Unknown Non-Blood / Unknown 04/27/2023 12:14 PM SHEET WRITER 04/27/2023 12:16 PM SHEET WRITER Jaime Mead MD [facility]Y [facility] [address] [place] [address], * (ABNORMAL) UA W/ SEDIMENT EXAM REFLEXED PER CRITERIA (04/27/2023 12:14 PM [facility]) Only the most recent of4 resultswithin the time period is included. COLOR Yellow Yellow Color 04/27/2023 12:[address] [facility] CLARITY Clear Clear Clarity 04/27/2023 12:[address] [facility] SPECIFIC GRAVITY,URINE >=1.030(A) 1.010, 1.015, 1.020, 1.025 04/27/2023 12:[address] [facility] PH,URINE 5.5 6.0, 7.0, 8.0, 5.5, 6.5, 7.5, 8.5 04/27/2023 12:[address] [facility] UROBILINOGEN,QU ALITATIVE Normal Normal EU/dl 04/27/2023 12:[address] [facility] PROTEIN, URINE 30(A) Negative mg/dL 04/27/2023 12:[address] [facility] GLUCOSE, URINE >=1000(A) Negative mg/dL 04/27/2023 12:[address] [facility] KETONES,URINE 40(A) Negative mg/dL 04/27/2023 12:26 PM [facility] BILIRUBIN,URINE Abnormal(A) Negative 04/27/19 12:[address] [facility] Comment:A variety of metabol ites and/or medications may result in a positive bilirubin result. Clinical correlation is recommended. OCCULT BLOOD,URINE Large(A) Negative 04/27/2023 12:[address] [facility] NITRITE Negative Negative 04/27/2023 12:[address] [facility] LEUKOCYTE ESTERASE Trace(A) Negative 04/27/2023 12:[address] [facility] Urine URINE SPECIMEN / Unknown Non-Blood / Unknown 04/27/2023 12:14 PM SHEET WRITER 04/27/2023 12:16 PM SHEET WRITER Jaime Mead MD URINE [facility] [address] [place] [address] * CT HEAD BRAIN WO (04/27/2023 12:08 PM SHEET WRITER) Anatomical Region Laterality Modality HEAD, BRAIN Computed Tomogra phy 04/27/2023 12:5 1 PM SHEET WRITER Impressions 04/27/2023 12:51 PM SHEET WRITER 1. No intracranial bleed or mass effect. 2. Old right frontal infarct. 3. Cerebral atrophy with nonspecific white matter disease, likely microangiopathy. Please note that all CT scans at this facility use dose modulation, iterative reconstruction, and/or weight-based dosing when appropriate to reduce radiation dose to as low as reasonably achievable. Dictated by Vitor Toney MD @ 04/27/2023 12:51:30 PM (Electronically Signed) Narrative 04/27/2023 12:51 PM SHEET WRITER For Patients: ??As a result of the Cures Act, medical imaging exams and procedure reports are released immediately into your electronic medical record. ??You may view this report before your referring provider. ??If you have questions, please contact your health care provider. INDICATION: Neurologic deficit TECHNIQUE: CT head without contrast. COMPARISON: Head CT 04/15/2016 FINDINGS: CSF spaces: Within normal limits for age. ?? Brain parenchyma: Mild cerebral atrophy with old right frontal infarct and mild adjacent low-density in the deep white matter, likely gliosis. Separate mild areas of low density within the deep white matter. No intracranial bleed or mass effect. Skull base and calvarium: Mucosal thickening paranasal sinuses. The visualized orbits are grossly unremarkable. ??No skull fractures. ?? Procedure Note Vitor Toney MD - 04/27/2023 For Patients: As a result of the Cures Act, medical imagingexams and procedure reports are released immediately into your electronicmedical record. You may view this report before your referring provider.If you have questions, please contact your health care provider. INDICATION: Neurologic deficit TECHNIQUE: CT head without contrast. COMPARISON: Head CT 04/15/2016 FINDINGS: CSF spaces: Within normal limits for age. Brain parenchyma: Mild cerebral atrophy with old right frontal infarct andmild adjacent low-density in the deep white matter, likely gliosis.Separate mild areas of low density within the deep white matter. Nointracranial bleed or mass effect. Skull base and calvarium: Mucosal thickening paranasal sinuses. Thevisualized orbits are grossly unremarkable. No skull fractures. IMPRESSION: 1. No intracranial bleed or mass effect. 2. Old right frontal infarct. 3. Cerebral atrophy with nonspecific white matter disease, likelymicroangiopathy. Please note that all CT scans at this facility use dose modulation,iterative reconstruction, and/or weight-based dosing when appropriate toreduce radiation dose to as low as reasonably achievable. Dictated by Vitor Toney MD @ 04/27/2023 12:51:30 PM (Electronically Signed) Jaime Mead MD CT * (ABNORMAL) CBC W PLT NO DIFF (04/27/2023 11:44 AM SHEET WRITER) WHITE BLOOD COUNT 4.5 4.5 - 11.0 thou/cu mm 04/27/2023 12:[address] [facility] RED BLOOD COUNT 4.53 4.30 - 5.90 mil/cu mm 04/27/2023 12:[address] [facility] HEMOGLOBIN 14.0 13.5 - 17.5 g/dL 04/27/2023 12:[address] [facility] HEMATOCRIT 43.7 37.0 - 53.0 % 04/27/2023 12:[address] [facility] MCV 97 80 - 100 fL 04/27/2023 12:[address] [facility] MCH 30.9 26.0 - 34.0 pg 04/27/2023 12:[address] [facility] MCHC 32.0 32.0 - 36.0 g/dL 04/27/2023 12:[address] [facility] RDW 17.8(H) 11.5 - 15.5 % 04/27/2023 12:[address] [facility] PLATELET COUNT 123(L) 140 - 440 thou/cu mm 04/27/2023 12:[address] [facility] MPV 11.9(H) 6.5 - 11.0 fL 04/27/2023 12:[address] [facility] Blood BLOOD SPECIMEN / Unknown Butterfly / Unknown 04/27/2023 11:44 AM SHEET WRITER 04/27/2023 11:47 AM SHEET WRITER Jaime Mead MD HEMATOLOGY [facility] [address] [place] [address] * (ABNORMAL) BASIC METABOLIC PANEL (04/27/2023 11:44 AM SHEET WRITER) Only the most recent of2 resultswithin the time period is included. SODIUM 139 136 - 145 mmol/L 04/27/2023 12:[address] [facility] POTASSIUM 4.1 3.5 - 5.1 mmol/L 04/27/2023 12:[address] [facility] CHLORIDE 103 98 - 107 mmol/L 04/27/2023 12:[address] [facility] CO2,TOTAL 27 22 - 29 mmol/L 04/27/2023 12:[address] [facility] ANION GAP 9 5 - 18 04/27/2023 12:[address] [facility] GLUCOSE 81 70 - 99 mg/dL 04/27/2023 12:[address] [facility] CALCIUM 9.3 8.8 - 10.2 mg/dL 04/27/2023 12:[address] [facility] BUN 18 8 - 23 mg/dL 04/27/2023 12:[address] [facility] CREATININE 0.63(L) 0.70 - 1.20 mg/dL 04/27/2023 12:[address] [facility] BUN/CREAT RATIO 29(H) 10 - 20 12:[address] [facility] eGFR >90 >90 mL/min/1.7 3m2 04/27/2023 12:[address] [facility] Comment:As of 2021, eG FR is calculated by the CKD-EPI creatinine equation without race adjustment. ??eGFR can be influenced by muscle mass, exercise, and diet. ??The reported eGFR is an estimation only and is only applicable if the renal function is stable. Blood BLOOD SPECIMEN / Unknown Butterfly / Unknown 04/27/2023 11:44 AM SHEET WRITER 04/27/2023 11:47 AM SHEET WRITER Jaime Mead MD CHEMISTRY Performing Organization Address City/[facility]/ZIP Co de Phone Number [facility] [address] [place] [address] * EKG 12 LEAD (04/27/2023 11:42 AM SHEET WRITER) Pathologist [facility] Interpretation Normal sinus rhythm Left axis deviation Right bundle branch block Inferior infarct , age undetermined Abnormal ECG No previous ECGs available Similar to prior 12.31.16 BEYOND NOW Ventricular Rate 78 BPM BEYOND NOW Atrial Rate 78 BPM BEYOND NOW P-R Interval 190 ms BEYOND NOW QRS Duration 138 ms BEYOND NOW QT 408 ms BEYOND NOW QTc 465 ms BEYOND NOW P [place] 39 degrees BEYOND NOW R [place] -35 degrees BEYOND NOW T [place] 12 degrees BEYOND NOW 04/27/2023 11:4 2 AM SHEET WRITER 04/27/2023 1:15 PM SHEET WRITER Jaime Mead MD EKG ORD Performing Organization Address [facility] Co de Phone Number [facility] NOW [place], [place] * (ABNORMAL) COVID-19 MOLECULAR (04/27/2023 11:12 AM SHEET WRITER) Pathologist [facility] COVID 19 [place] MOLECULAR Detected(A) Not detected 04/27/2023 11:37 AM SHEET WRITER [facility] TESTING LABORATORY [facility] 04/27/2023 11:37 AM SHEET WRITER [facility] Comment:Specimen submitted t o [facility] for testing. Other SPECIMEN FROM NASOPHARYNGEAL STRUCTURE / Unknown Non-Blood / Unknown 04/27/2023 11:12 AM SHEET WRITER 04/27/2023 11:15 AM SHEET WRITER Narrative [facility] - 04/27/2023 11:37 AM SHEET WRITER This test has been authorized by FDA under an Emergency Use Authorization (EUA). This test is only authorized for the duration of time the declaration that circumstances exist justifying the authorization of the emergency use of in vitro diagnostic tests for detection of SARS-CoV-2 virus and/or diagnosis of COVID-19 infection under section 564(b)(1) of the Act, 21 U.S.C. 360bbb-3(b) (1), unless the authorization is terminated or revoked sooner. Jaime Mead MD MICROBIOLOGY Performing Organization Address [facility] Co de Phone Number [facility] [address] [place] [address] * INFLUENZA A/B PCR (04/27/2023 11:12 AM SHEET WRITER) INFLUENZA A PCR NOT Detected 04/27/2023 11:37 AM SHEET WRITER [facility] INFLUENZA B PCR NOT Detected 04/27/2023 11:37 AM SHEET WRITER [facility] Other SPECIMEN FROM NASOPHARYNGEAL STRUCTURE / Unknown Non-Blood / Unknown 04/27/2023 11:12 AM SHEET WRITER 04/27/2023 11:15 AM SHEET WRITER Jaime Mead MD MICROBIOLOGY Performing Organization Address [facility] de Phone Number [facility] [address] [place] [address] * MR ABDOMEN WWO (04/13/2023 11:28 AM SHEET WRITER) Anatomical Region Laterality Modality Abdomen, LIVER, PANCREAS, KIDNEYS, AORTA Magnetic Resonance 04/14/2023 8:32 AM SHEET WRITER Narrative 04/14/2023 8:32 AM SHEET WRITER For Patients: ??As a result of the Cures Act, medical imaging exams and procedure reports are released immediately into your electronic medical record. ??You may view this report before your referring provider. ??If you have questions, please contact your health care provider. INDICATION: Pancreatic mass. COMPARISON: CT scan of the abdomen and pelvis dated 26 March 2023. TECHNIQUE: Abdominal MRI with T1 in- and out of phase, T2, diffusion weighted, and progressively delayed post-contrast images. Intravenous gadolinium administered. FINDINGS: No fatty infiltration of the liver. A few tiny probable cysts in the liver. No other focal abnormalities identified in the visualized portions of the liver, spleen and adrenal glands. A few bilateral renal cysts with the largest extending off the lower pole of the right kidney measuring 2.7 cm. The kidneys are otherwise unremarkable. No hydronephrosis. No adenopathy. 5.1 x 4.2 x 4.1 cm complex cystic mass arising from the neck/body of the pancreas shows significant wall thickening enhancement with multiloculated dilation of the main pancreatic duct measuring up to 1.5 cm. No bile duct dilation. No adenopathy. Impression : 1. 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 Recommend gastroenterology consultation. Dictated by Vivek Washington MD @ 04/14/2023 8:32:12 AM (Electronically Signed) Procedure Note Vivek Washington MD - 04/14/2023 For Patients: As a result of the Cures Act, medical imagingexams and procedure reports are released immediately into your electronicmedical record. You may view this report before your referring provider.If you have questions, please contact your health care provider. INDICATION: Pancreatic mass. COMPARISON: CT scan of the abdomen and pelvis dated 26 March 2023. TECHNIQUE: Abdominal MRI with T1 in- and out of phase, T2, diffusion weighted, andprogressively delayed post-contrast images. Intravenous gadoliniumadministered. FINDINGS: No fatty infiltration of the liver. A few tiny probable cysts in the liver. No other focal abnormalitiesidentified in the visualized portions of the liver, spleen and adrenalglands. A few bilateral renal cysts with the largest extending off the lower poleof the right kidney measuring 2.7 cm. The kidneys are otherwiseunremarkable. No hydronephrosis. No adenopathy. 5.1 x 4.2 x 4.1 cm complex cystic mass arising from the neck/body of thepancreas shows significant wall thickening enhancement with multiloculateddilation of the main pancreatic duct measuring up to 1.5 cm. No bile duct dilation. No adenopathy. Impression : 1. 5.1 cm complex cystic pancreatic mass with involvement of the mainpancreatic duct has somewhat nonspecific imaging characteristics but mayrepresent a malignant intraductal papillary mucinous neoplasm with mainduct extension versus a serous cystic neoplasm. Recommend gastroenterology consultation. Dictated by Vivek Washington MD @ 04/14/2023 8:32:12 AM (Electronically Signed) Joy Hurd [employer] MR * (ABNORMAL) CBC WITH AUTO DIFFERENTIAL (04/02/2023 10:26 PM SHEET WRITER) Only the most recent of2 resultswithin the time period is included. WHITE BLOOD COUNT 13.0(H) 4.5 - 11.0 thou/cu mm 04/02/2023 11:[address] [facility] RED BLOOD COUNT 4.87 4.30 - 5.90 mil/cu mm 04/02/2023 11:[address] [facility] HEMOGLOBIN 15.0 13.5 - 17.5 g/dL 04/02/2023 11:[address] [facility] HEMATOCRIT 45.4 37.0 - 53.0 % 04/02/2023 11:[address] [facility] MCV 93 80 - 100 fL 04/02/2023 11:[address] [facility] MCH 30.8 26.0 - 34.0 pg 04/02/2023 11:[address] [facility] MCHC 33.0 32.0 - 36.0 g/dL 04/02/2023 11:[address] [facility] RDW 16.3(H) 11.5 - 15.5 % 04/02/2023 11:[address] [facility] PLATELET COUNT 217 140 - 440 thou/cu mm 04/02/2023 11:[address] [facility] MPV 11.5(H) 6.5 - 11.0 fL 04/02/2023 11:[address] [facility] Blood BLOOD SPECIMEN / Unknown Butterfly / Unknown 04/02/2023 10:26 PM SHEET WRITER 04/02/2023 10:32 PM SHEET WRITER Janay Estrada MD HEMATOLOG Y [facility] [address] [place] [address] * LACTATE VENOUS (04/02/2023 10:26 PM SHEET WRITER) [facility] LACTATE,VENOUS 1.4 0.5 - 2.0 mmol/L 04/02/2023 10:53 PM SHEET WRITER [facility] Blood BLOOD SPECIMEN / Unknown Butterfly / Unknown 04/02/2023 10:26 PM SHEET WRITER 04/02/2023 10:33 PM SHEET WRITER Janay Estrada MD CHEMISTRY Performing Organization Address [facility] Co de Phone Number [facility] [address] [place] [address] * (ABNORMAL) MANUAL DIFFERENTIAL (04/02/2023 10:26 PM SHEET WRITER) [facility] % NEUTROPHILS 80.0 % 04/02/2023 11:[address] [facility] % LYMPHOCYTES 11.0 % 04/02/2023 11:[address] [facility] % MONOCYTES 8.0 % 04/02/2023 11:[address] [facility] % EOSINOPHILS 1.0 % 04/02/2023 11:[address] [facility] % BASOPHILS 0.0 % 04/02/2023 11:[address] [facility] NEUTROPHILS ABSOLUTE 10.4(H) 1.7 - 7.0 thou/cu mm 04/02/2023 11:[address] [facility] LYMPHOCYTES ABSOLUTE 1.4 0.9 - 2.9 thou/cu mm 04/02/2023 11:[address] [facility] MONOCYTES ABSOLUTE 1.0(H) <0.9 thou/cu mm 04/02/2023 11:[address] [facility] EOSINOPHILS ABSOLUTE 0.1 <0.5 thou/cu mm 04/02/2023 11:[address] [facility] BASOPHILS ABSOLUTE 0.0 <0.3 thou/cu mm 04/02/2023 11:[address] [facility] Blood BLOOD SPECIMEN / Unknown Butterfly / Unknown 04/02/2023 10:26 PM SHEET WRITER 04/02/2023 10:32 PM [facility] Janay Estrada MD HEMATOLOG Y [facility] [address] [facility] [place] [address] * (ABNORMAL) COMP METABOLIC PANEL (04/02/2023 10:26 PM [facility]) SODIUM 135(L) 136 - 145 mmol/L 04/02/2023 10:[address] [facility] POTASSIUM 4.1 3.5 - 5.1 mmol/L 04/02/2023 10:[address] [facility] CHLORIDE 99 98 - 107 mmol/L 04/02/2023 10:[address] [facility] CO2,TOTAL 23 22 - 29 mmol/L 04/02/2023 10:[address] [facility] ANION GAP 13 5 - 18 04/02/2023 10:[address] [facility] GLUCOSE 158(H) 70 - 99 mg/dL 04/02/2023 10:[address] [facility] CALCIUM 10.1 8.8 - 10.2 mg/dL 04/02/2023 10:[address] [facility] BUN 22 8 - 23 mg/dL 04/02/2023 10:[address] [facility] CREATININE 0.69(L) 0.70 - 1.20 mg/dL 04/02/2023 10:[address] [facility] BUN/CREAT RATIO 32(H) 10 - 20 10:[address] [facility] eGFR >90 >90 mL/min/1.7 3m2 04/02/2023 10:[address] [facility] Comment:As of 2021, eG FR is calculated by the CKD-EPI creatinine equation without race adjustment. ??eGFR can be influenced by muscle mass, exercise, and diet. ??The reported eGFR is an estimation only and is only applicable if the renal function is stable. ALBUMIN 3.9(L) 4.0 - 4.9 g/dL 04/02/2023 10:[address] [facility] PROTEIN,TOTAL 6.5 6.0 - 8.0 g/dL 04/02/2023 10:[address] [facility] BILIRUBIN,TOTAL 0.3 0.0 - 1.2 mg/dL 04/02/2023 10:[address] [facility] ALK PHOSPHATASE 72 40 - 129 IU/L 04/02/2023 10:[address] [facility] ALT (SGPT) 10 10 - 50 IU/L 04/02/2023 10:[address] [facility] AST (SGOT) 17 10 - 50 IU/L 04/02/2023 10:[address] [facility] Blood BLOOD SPECIMEN / Unknown Butterfly / Unknown 04/02/2023 10:26 PM SHEET WRITER 04/02/2023 10:32 PM SHEET WRITER Janay Estrada MD CHEMISTRY [facility] [address] [place] [address] * (ABNORMAL) LIPASE (03/26/2023 6:18 PM SHEET WRITER) Pathologist [facility] LIPASE 10.0(L) 13.0 - 60.0 IU/L 03/26/2023 7:39 PM SHEET WRITER [facility] Blood BLOOD SPECIMEN / Unknown Butterfly / Unknown 03/26/2023 6:18 PM SHEET WRITER 03/26/2023 6:20 PM SHEET WRITER Zoraida Bose NP CHEMISTRY [facility] [address] [place] [address] * (ABNORMAL) HEPATIC FUNCTION PANEL (03/26/2023 6:18 PM SHEET WRITER) ALBUMIN 3.7(L) 4.0 - 4.9 g/dL 03/26/2023 8:[address] [facility] PROTEIN,TOTAL 6.3 6.0 - 8.0 g/dL 03/26/2023 8:[address] [facility] BILIRUBIN,TOTAL 0.4 0.0 - 1.2 mg/dL 03/26/2023 8:[address] [facility] BILIRUBIN,DIRECT <0.2 0.0 - 0.3 mg/dL 03/26/2023 8:[address] [facility] BILIRUBIN,INDIRE CT 03/26/2023 8:[address] [facility] Comment:Unable to calculate, Direct Bili <0.2 ALK PHOSPHATASE 73 40 - 129 IU/L 03/26/2023 8:[address] [facility] ALT (SGPT) 9(L) 10 - 50 IU/L 03/26/2023 8:[address] [facility] AST (SGOT) 18 10 - 50 IU/L 03/26/2023 8:[address] [facility] Blood BLOOD SPECIMEN / Unknown Butterfly / Unknown 03/26/2023 6:18 PM SHEET WRITER 03/26/2023 6:20 PM SHEET WRITER Zoraida Bose [employer] CHEMISTRY [facility] [address] [place] [address] * CT ABDOMEN PELVIS UROGRAM WWO (03/26/2023 5:27 PM SHEET WRITER) Anatomical Region Laterality Modality Abdomen, Pelvis, KIDNEYS, BLADDER Computed Tomography 03/26/2023 6:13 PM SHEET WRITER Impressions 03/26/2023 6:13 PM SHEET WRITER 1. Severely distended urinary bladder. Upstream hydronephrosis which limits the urographic technique. 2. Irregular mass essentially replacing the pancreatic head and proximal body. No biliary ductal dilatation. Recommend pancreas protocol MR abdomen without and with contrast when the patient is able to undergo this exam. Discussed with Dr. Pompa at 6:11 pm SHEET WRITER on 03/26/2023. Please note that all CT scans at this facility use dose modulation, iterative reconstruction, and/or weight-based dosing when appropriate to reduce radiation dose to as low as reasonably achievable. Dictated by Albina Love MD @ 03/26/2023 6:13:44 PM (Electronically Signed) Narrative 03/26/2023 6:13 PM SHEET WRITER For Patients: ??As a result of the Cures Act, medical imaging exams and procedure reports are released immediately into your electronic medical record. ??You may view this report before your referring provider. ??If you have questions, please contact your health care provider. INDICATION: Urinary tract infection symptoms with macroscopic hematuria COMPARISON: None. TECHNIQUE: CT of the abdomen and pelvis before and after the administration of intravenous contrast. Precontrast and 2 sets of delayed urographic phase images are obtained. Multiplanar axial, coronal, and sagittal reformats were reconstructed. Contrast: 100 mL Omnipaque 300 intravenously. Oral contrast was not administered. FINDINGS: Normal renal size and position. There are multiple bilateral renal lesions. The lesions that are large enough to characterize are simple cysts no solid renal mass seen on either side. There are no intrarenal or ureteral calculi. There are a few small layering calculi the most deep tendon aspect of the urinary bladder. The urinary bladder is severely distended. There is bilateral pelvocaliectasis. On the urographic phase image the opacification of the collecting system is significantly suboptimal, likely due to the obstructive nature of the bladder dilatation. Lung bases: Focal reticulation in the right greater than left lower lobes may be related to chronic insult or scarring. 2 small perifissural nodules along the right minor fissure. Liver: Normal. No masses. Normal vasculature. Gallbladder and biliary tree: Normal gallbladder. No biliary duct dilation. Pancreas: Multiple low-density lesions in the pancreas versus a confluent mass with multiple necrotic or cystic spaces. This is not well evaluated on this exam. The affected area measures 7.2 x 4.1 x 5.5 cm. The pancreatic tail is atrophied. No pancreatic duct dilatation. Spleen: Normal. Normal size. Adrenal glands: Normal. No nodules. GI: Diverticulosis. No dilated segments. No abnormal bowel wall thickening or hyperenhancement. Small stool burden. The appendix is not discretely seen. Vessels: Aorta and major branches, including the mesenteric vessels: Patent. Normal caliber. Moderate atherosclerotic plaques. IVC and tributaries: Normal. Mesenteric and portal veins: Normal. Peritoneum: No free fluid. Lymph nodes: Few moderately prominent lymph nodes in the upper abdomen without being frankly enlarged. Pelvis: Physiologic appearance of the reproductive organs. Bones: No fractures. No focal bone lesions. Normal for age. Abdominal wall: Normal. Procedure Note Albina Love MD - 03/26/2023 For Patients: As a result of the Century Cures Act, medical imagingexams and procedure reports are released immediately into your electronicmedical record. You may view this report before your referring provider.If you have questions, please contact your health care provider. INDICATION: Urinary tract infection symptoms with macroscopic hematuria COMPARISON: None. TECHNIQUE: CT of the abdomen and pelvis before and after the administration ofintravenous contrast. Precontrast and 2 sets of delayed urographic phaseimages are obtained. Multiplanar axial, coronal, and sagittal reformatswere reconstructed. Contrast: 100 mL Omnipaque 300 intravenously. Oral contrast was notadministered. FINDINGS: Normal renal size and position. There are multiple bilateral renallesions. The lesions that are large enough to characterize are simplecysts no solid renal mass seen on either side. There are no intrarenal orureteral calculi. There are a few small layering calculi the most deeptendon aspect of the urinary bladder. The urinary bladder is severelydistended. There is bilateral pelvocaliectasis. On the urographic phaseimage the opacification of the collecting system is significantlysuboptimal, likely due to the obstructive nature of the bladderdilatation. Lung bases: Focal reticulation in the right greater than left lower lobesmay be related to chronic insult or scarring. 2 small perifissural nodulesalong the right minor fissure. Liver: Normal. No masses. Normal vasculature. Gallbladder and biliary tree: Normal gallbladder. No biliary ductdilation. Pancreas: Multiple low-density lesions in the pancreas versus a confluentmass with multiple necrotic or cystic spaces. This is not well evaluatedon this exam. The affected area measures 7.2 x 4.1 x 5.5 cm. Thepancreatic tail is atrophied. No pancreatic duct dilatation. Spleen: Normal. Normal size. Adrenal glands: Normal. No nodules. GI: Diverticulosis. No dilated segments. No abnormal bowel wall thickeningor hyperenhancement. Small stool burden. The appendix is not discretelyseen. Vessels: Aorta and major branches, including the mesenteric vessels: Patent. Normalcaliber. Moderate atherosclerotic plaques. IVC and tributaries: Normal. Mesenteric and portal veins: Normal. Peritoneum: No free fluid. Lymph nodes: Few moderately prominent lymph nodes in the upper abdomenwithout being frankly enlarged. Pelvis: Physiologic appearance of the reproductive organs. Bones: No fractures. No focal bone lesions. Normal for age. Abdominal wall: Normal. IMPRESSION: 1. Severely distended urinary bladder. Upstream hydronephrosis whichlimits the urographic technique. 2. Irregular mass essentially replacing the pancreatic head and proximalbody. No biliary ductal dilatation. Recommend pancreas protocol MR abdomenwithout and with contrast when the patient is able to undergo this exam. Discussed with Dr. Pompa at 6:11 pm SHEET WRITER on 03/26/2023. Please note that all CT scans at this facility use dose modulation,iterative reconstruction, and/or weight-based dosing when appropriate toreduce radiation dose to as low as reasonably achievable. Dictated by Albina Love MD @ 03/26/2023 6:13:44 PM (Electronically Signed) Authorizing Provider Result Miguelangel Pompa NP CT * CREATININE,ISTAT (03/26/2023 5:18 PM SHEET WRITER) CREATININE, POCT 0.70 0.57 - 1.11 mg/dL 03/26/2023 5:22 PM SHEET WRITER [facility] eGFR >90 >90 mL/min/1.7 3m2 03/26/2023 5:22 PM SHEET WRITER [facility] Comment:As of 2021, eG FR is calculated by the CKD-EPI creatinine equation without race adjustment. eGFR can be influenced by muscle mass, exercise, and diet. The reported eGFR is an estimation only and is only applicable if the renal function is stable. Blood BLOOD SPECIMEN / Unknown 03/26/2023 5:18 PM SHEET WRITER 03/26/2023 5:22 PM SHEET WRITER Narrative Authorizing Provider Result Miguelangel Pompa NP CHEMISTRY [facility] [address] [place] [address] * SCAN CORRESP-DIAGNOSTICS (03/12/2023 4:16 PM SHEET WRITER) Narrative 03/12/2023 4:16 PM SHEET WRITER Ordered by an unspecified provider. Other Clinical Staff OTHER * SCAN CORRESP-DIAGNOSTICS (03/12/2023 10:49 AM SHEET WRITER) Narrative 03/12/2023 10:49 AM SHEET WRITER Ordered by an unspecified provider. Other Clinical Staff OTHER from Last 3 Months Additional Health Concerns Infection Onset Date Last Indicated COVID History Comment:COVID+ test result dates: 04/27/23, [facility] Patient met COVID clearance. For evaluation of subsequent COVID+ results, refer to the algorithm on the [facility]: Isolation Precaution Recommendations for Patients with History of COVID-19 Infection. 05/16/2023 05/16/2023 Advance Directives Latest Code Status on File Code Status Date Activated Date Inactivated Comments Full Code 05/16/2023 11:05 AM 05/16/2023 2:57 PM Question Answer Comments Code Status Discussion: Unable to Assess Preferences, Provider to review later Code Status History Code Status Date Activated Date Inactivated Comments Full Code 04/27/2023 2:57 PM 05/02/2023 4:37 PM Question Answer Comments Code Status Discussion: Reviewed Preferences Full Code 03/14/2022 12:15 PM 03/14/2022 6:22 PM Question Answer Comments Code Status Discussion: Discussed Full Code 01/01/2015 9:17 AM 01/01/2015 12:15 PM Full Code 01/01/2015 7:10 AM 01/01/2015 9:17 AM Care Teams Echocardiography Radiology Technologist Relationship Specialty Start Date End Date Joy Hurd NP [address] [place] [address] PCP - General Family Practice 08/23/11 Naveen Walker MD [address] [place] [address] Surgery - Otolaryngology 09/10/12August, Leonie Donovan RN, BSN [address] [phone] Nurse Navigator - Oncology Oncology 04/19/23
[2023-05-24] MEDS: SODIUM CHLORIDE 0.9 % (FLUSH) 10 ML SYRINGE IVF (07:20)
[2023-05-24] MEDS: CEFAZOLIN 2 GM in 0.9 % SODIUM CHLORIDE Mini-bag 100 ML IVPB (07:35)
[2023-05-24] MEDS: BUPIVACAINE 0.25% 30 ML INJECTION (08:30)
[2023-05-24] MEDS: LIDOCAINE 1% 5 ml (pf) 5 ML VIAL 14 ML INJECTION (08:30)
--- NOTE | 2023-05-24 08:51 | PM.GSPRC ---
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 Procedure Description: After discussing the risks and benefits of the procedure, the patient signed informed consent.? The operative site was marked and the patient was brought to the operating room. He was positioned on the transport cart in the right lateral decubitus position. The left posterior chest was prepped and draped. Preoperative antibiotics were administered. ? A time-out was then performed. The area was marked out using a marking pen to completely encompass the prior scar and cyst. The sinus tract had 2 openings on either and there was a small amount of material draining and a small amount of keratinaceous material was noted coming from the inferior opening. Local anesthetic was injected into the skin and subcutaneous tissue under and around the planned incision. A knife was then used to create an ellipse. This was taken down to subcutaneous fat. Cautery was then used to completely excise the cyst, care was taken not to enter this, and stay in a clean plane of normal subcutaneous fat. This was taken down to fascia. Once the specimen was removed, hemostasis was achieved with cautery. There was no spillage of cyst contents into the wound, however the wound was irrigated with Betadine. Once this was done, the skin was closed with 2-0 Vicryl dermal sutures and 4-0 Monocryl running subcuticular suture. Glue was then applied. The patient was then transported to the recovery area. The patient tolerated the procedure well. At the end, the specimen was examined. This appeared to be a subcutaneous epidermal inclusion cyst with a subcutaneous sinus tract extending between the 2 openings. Findings: 3 x 7 cm chronic epidermal inclusion cyst with sinus tract from prior drainage and excision attempts. Anesthesia: local Surgeon: Elisha Arteaga MD Estimated blood loss (mL): 5 Additional Specimen Information: None Condition: stable Disposition: PACU
== END 2023-05-24 09:28 | disposition home or self-care (01) ==
PROVIDERS: PCP Nurse Practitioner Family; Visit Provider Surgery
PROC: (CPT 11406; principal; 2023-05-24 08:00)
DX: L72.0 Epidermal cyst (principal)
CPT/HCPCS: 11406; 82962; J0665; J0690